=== PATIENT | female | born 1985 | race Caucasian/White ===

== ENCOUNTER 2018-09-24 19:44 | Emergency (ER) | payer MEDICAID, OTHER ==
[~2018-09-24] VITALS: Ht 152.4 cm; Wt 58.0 kg
[~2018-09-24 19:44] MED LIST: CARI350T PO
[2018-09-24 21:31] VITALS: BP 115/71
--- NOTE | 2018-09-24 21:34 | NUR ---
CT RESULTS ARE BACK WITH NORMAL FINDINGS. PT PLACED FOR RE-EVAL.
== END 2018-09-24 21:45 | disposition home or self-care (01) ==
LOC: ER 19:45
DX: S00.83XA Contusion of other part of head, initial encounter (principal); H53.2 Diplopia; G89.29 Other chronic pain; Z88.2 Allergy status to sulfonamides; Z88.1 Allergy status to other antibiotic agents; Z79.899 Other long term (current) drug therapy; W22.01XA Walked into wall, initial encounter; Y93.89 Activity, other specified; Y92.89 Other specified places as the place of occurrence of the external cause; Y99.8 Other external cause status
CPT/HCPCS: 70480; 99284

== ENCOUNTER 2019-05-20 19:17 | Emergency (ER) | payer MEDICAID ==
[~2019-05-20] VITALS: Ht 152.4 cm; Wt 120.0 kg
[2019-05-20 19:32] VITALS: BP 135/81
[2019-05-20] MEDS ORDERED: BENZ-16 PO (20:00)
[2019-05-20] MEDS ORDERED: TAM75C PO (20:00)
[2019-05-20] MEDS ORDERED: ALBU8HFA PO (20:00)
== END 2019-05-20 20:33 | disposition home or self-care (01) ==
LOC: ER 19:17
DX: R50.9 Fever, unspecified (principal); B34.9 Viral infection, unspecified; R05 Cough; J02.9 Acute pharyngitis, unspecified; R06.02 Shortness of breath; G89.29 Other chronic pain; Z88.2 Allergy status to sulfonamides; Z88.1 Allergy status to other antibiotic agents; Z79.899 Other long term (current) drug therapy
CPT/HCPCS: 20552; 96372; 99283; 99284

== ENCOUNTER 2019-08-30 13:59 | Emergency (ER) | payer MEDICAID, OTHER ==
[~2019-08-30] VITALS: Ht 152.4 cm; Wt 47.0 kg
[2019-08-30 14:07] VITALS: BP 106/72
== END 2019-08-30 17:36 | disposition left against medical advice (07) ==
LOC: ER 14:01
DX: S61.219A Laceration without foreign body of unspecified finger without damage to nail, initial encounter (principal); Z53.21 Procedure and treatment not carried out due to patient leaving prior to being seen by health care provider; X58.XXXA Exposure to other specified factors, initial encounter; Y93.89 Activity, other specified; Y92.89 Other specified places as the place of occurrence of the external cause; Y99.8 Other external cause status

== ENCOUNTER 2020-07-15 10:19 | Emergency (ER) | payer OTHER ==
[~2020-07-15] VITALS: Ht 152.4 cm; Wt 50.0 kg
[2020-07-15] MEDS ORDERED: ORPH100T2 PO (11:04)
[2020-07-15] MEDS ORDERED: HYDR-3972 PO (11:04)
[2020-07-15 11:22] VITALS: BP 113/81
== END 2020-07-15 11:24 | disposition home or self-care (01) ==
LOC: ER 10:19
DX: S29.012A Strain of muscle and tendon of back wall of thorax, initial encounter (principal); G89.29 Other chronic pain; F17.200 Nicotine dependence, unspecified, uncomplicated; Z72.89 Other problems related to lifestyle; Z79.899 Other long term (current) drug therapy; Z88.2 Allergy status to sulfonamides; Z88.8 Allergy status to other drugs, medicaments and biological substances; X58.XXXA Exposure to other specified factors, initial encounter; Y93.89 Activity, other specified; Y92.89 Other specified places as the place of occurrence of the external cause; Y99.8 Other external cause status
CPT/HCPCS: 99283

== ENCOUNTER 2021-01-09 23:04 | Emergency (ER) | payer MEDICAID, OTHER ==
[~2021-01-09] VITALS: Ht 152.4 cm; Wt 47.6 kg
[~2021-01-09 23:04] MED LIST changes: +ORPH100T2 PO
[2021-01-09 23:21] VITALS: BP 120/76
[2021-01-10] MEDS ORDERED: IBUP-1984 PO (00:19)
[2021-01-10] MEDS ORDERED: ketorolac trometh inj. 60 MG/2 ML VIAL IM ONE (00:20)
== END 2021-01-10 00:43 | disposition home or self-care (01) ==
LOC: ER 23:05
DX: F07.81 Postconcussional syndrome (principal); M54.89 Other dorsalgia; M54.2 Cervicalgia; G89.29 Other chronic pain; Z72.89 Other problems related to lifestyle; Z88.2 Allergy status to sulfonamides; Z88.1 Allergy status to other antibiotic agents; Z79.899 Other long term (current) drug therapy; V87.7XXA Person injured in collision between other specified motor vehicles (traffic), initial encounter; Y93.89 Activity, other specified; Y92.89 Other specified places as the place of occurrence of the external cause; Y99.8 Other external cause status
CPT/HCPCS: 96372; 99283; J1885

== ENCOUNTER 2021-01-12 09:11 | Emergency (ER) | payer MEDICAID, OTHER ==
[~2021-01-12] VITALS: Ht 152.4 cm; Wt 4.8 kg
[~2021-01-12 09:11] MED LIST changes: +IBUP-1984 PO
[2021-01-12 10:13] VITALS: BP 117/85
== END 2021-01-12 10:47 | disposition home or self-care (01) ==
LOC: ER 09:11
DX: F07.81 Postconcussional syndrome (principal); G89.29 Other chronic pain; M54.9 Dorsalgia, unspecified; Z88.2 Allergy status to sulfonamides; Z79.899 Other long term (current) drug therapy; V98.8XXA Other specified transport accidents, initial encounter; Y93.89 Activity, other specified; Y92.89 Other specified places as the place of occurrence of the external cause; Y99.8 Other external cause status
CPT/HCPCS: 99282

== ENCOUNTER 2021-08-31 08:25 | Emergency (ER) | payer BC, MEDICAID ==
[~2021-08-31] VITALS: Ht 152.4 cm; Wt 50.0 kg
[~2021-08-31 08:25] MED LIST changes: -IBUP-1984 PO
[2021-08-31 08:41] VITALS: BP 111/69
[2021-08-31] MEDS ORDERED: diphenhydrAMINE 25mg capsule PO ONE (11:35)
[2021-08-31] MEDS ORDERED: proparacaine 0.5% ophthalmic drops 15ml EACHEYE ONE (11:35)
[2021-08-31] MEDS ORDERED: diphenhydrAMINE 2%/zinc acetate cream TP SCH (13:00)
== END 2021-08-31 12:36 | disposition home or self-care (01) ==
LOC: ER 08:26
DX: H57.89 Other specified disorders of eye and adnexa (principal); H57.12 Ocular pain, left eye; G89.29 Other chronic pain; M54.9 Dorsalgia, unspecified; Z88.2 Allergy status to sulfonamides; Z79.899 Other long term (current) drug therapy
CPT/HCPCS: 99282; 99283